=== PATIENT | female | born 1985 | race African-American/Black ===

== ENCOUNTER 2020-10-29 08:45 | Emergency (ER) | payer OTHER ==
[~2020-10-29] VITALS: Ht 165.1 cm; Wt 59.0 kg
[2020-10-29] MEDS ORDERED: ONDANSETRON 4 MG/2 ML VIAL IV ONE (09:00)
[2020-10-29] MEDS ORDERED: IV NORMAL SALINE 1000 ML BAG IV ONE (09:00)
[2020-10-29] MEDS ORDERED: ONDANSETRON 4 MG/2 ML VIAL ONE (09:07)
[2020-10-29 09:22] LABS: *BILIRUBIN,URIN NEGATIVE (NEGATIVE); *BLOOD, URINE NEGATIVE (NEGATIVE); *CLARITY,URINE CLEAR (CLEAR); *COLOR,URINE YELLOW (YELLOW); *KETONES,URINE NEGATIVE (NEGATIVE); *UROBILINOGEN,URINE 0.2 E.U./dl (NORMAL); LEUKOCYTE ESTERASE ,URINE NEGATIVE (NEGATIVE); NITRITE, URINE NEGATIVE (NEGATIVE); PH,URINE 5.5 (5.0-8.0); UGLUCOSE NEGATIVE (NEGATIVE)
[2020-10-29 09:28] LABS: HEMATOCRIT 37.9 % (31.2-41.9); MEAN CORPUSCULAR HEMOGLOBIN 26.8 uug (24.7-32.8); MEAN CORPUSCULAR VOLUME 80.4 fL (75.5-95.3); PLATELET COUNT (AUTO) 235 K/uL (179-408)
[2020-10-29 09:29] LABS: BILIRUBIN,DIRECT 0.1 mg/dL (0.0-0.2); BILIRUBIN,TOTAL 0.2 mg/dL (0.2-1.0); POTASSIUM 5.8 mmol/L (3.5-5.1); TOTAL PROTEIN, SERUM 7.7 g/dL (6.4-8.2)
[2020-10-29 09:36] LABS: *URINE HCG, QUAL NEGATIVE (NEGATIVE)
[2020-10-29] MEDS ORDERED: LIDOCAINE VISCUS 2% 15 ML UDC MM ONE (09:45)
[2020-10-29] MEDS ORDERED: FAMOTIDINE. 20 MG/2 ML VIAL IV ONE (09:45)
[2020-10-29] MEDS ORDERED: MAG HYDROX/AL HYDROX/SIMETH 30 ML LIQUID UDC PO ONE (09:45)
[2020-10-29] MEDS ORDERED: SWABABLE VALVE TRANSFER SET EA MC ONE (10:00)
[2020-10-29] MEDS ORDERED: IV NORMAL SALINE 250 ML IV ONE (10:01)
[2020-10-29] MEDS ORDERED: IOHEXOL 300MG/ML 100 ML INFUS..BTL ONE (10:01)
--- NOTE | 2020-10-29 10:46 | NUR ---
Patient is resting comfortably on gurney while conversing with her visitor, TJ.
[2020-10-29] MEDS ORDERED: POLY17PO4 PO (11:44)
[2020-10-29] MEDS ORDERED: IBUP-1955 PO (11:44)
--- NOTE | 2020-10-29 12:09 | NUR ---
IV removed. Catheter intact and site benign. Pressure and 4x4 gauze applied to site. No bleeding noted. Patient discharged to home in stable condition with brisk steady gait. Written and verbal after care instructions given to patient and family. Patient and family verbalized understanding & compliance of instructions. Stressed follow up with primary doctor and steward/stewardess second class or return to ER for worsening s/s.
== END 2020-10-29 12:09 | disposition home or self-care (01) ==
LOC: ER 08:45
DX: N83.201 Unspecified ovarian cyst, right side (principal); K59.00 Constipation, unspecified; R10.11 Right upper quadrant pain; K76.0 Fatty (change of) liver, not elsewhere classified
CPT/HCPCS: 36415; 74177; 76705; 76856; 80048; 80076; 81003; 83690; 84703; 85025; 96360; 99285; Q9967; A4663; J2405; J7030; J7050